=== PATIENT | female | born 1960 | race Two or more races ===

== ENCOUNTER 2021-07-24 16:38 | Emergency (ER) | payer OTHER ==
[~2021-07-24] VITALS: Ht 162.6 cm; Wt 68.0 kg
[2021-07-24] MEDS ORDERED: HYSINGLA PO (17:04)
[2021-07-24] MEDS ORDERED: ATACAND16 MG PO (17:04)
== END 2021-07-24 21:44 | disposition home or self-care (01) ==
LOC: ER 16:38
DX: D25.9 Leiomyoma of uterus, unspecified (principal); D49.59 Neoplasm of unspecified behavior of other genitourinary organ